=== PATIENT | female | born 1945 | race Caucasian/White ===

== ENCOUNTER 2017-04-04 10:04 | Emergency (ER) | payer MEDICARE ==
--- NOTE | 2017-04-04 10:22 | UC ---
Complaint Female HPI - HPI Summary HPI Summary: 72 y/o female presents to the urgent care c/o frequency and burning or urination with a suprapubic pressure since yesterday. Pt states it has been more than a year that she doesn't have an UTI. Pt denies back pain , fever, hematuria, N/V/D abdominal pain, chest pain, vaginal discharge. She has not taking anything to alleviate symptoms. - History Of Current Complaint Stated Complaint: UTI SYMPTOMS Time Seen by Provider: 04/04/17 10:16 Hx Obtained From: Patient ?: No - Menopausal Onset/Duration: Lasting Days - 1 day, Still Present Timing: Intermittent, Lasting Seconds Severity Initially: Mild Severity Currently: Mild Pain Intensity: 1 Pain Scale Used: 0-10 Numeric Character: Burning Aggravating Factor(s): Urination Alleviating Factor(s): Nothing Associated Signs And Symptoms: Positive: Negative. Negative: Fever, Back Pain, Vaginal Bleeding/Discharge, Vaginal Discharge - Risk Factors Ectopic Risk Factor: Negative Ovarian Torsion Risk Factor: Negative - Allergies/Home Medications Allergies/Adverse Reactions: Allergies Allergy/AdvReac Type Severity Reaction Status Date / Time Iodinated Diagnostic Agents Allergy Hives Verified 04/04/17 10:22 Morphine Allergy Hives Verified 04/04/17 10:22 Promethazine [From Phenergan] Allergy See Comment Verified 04/04/17 10:22 PMH/Surg Hx/FS Hx/Imm Hx Previously Healthy: Yes Endocrine History: Dyslipidemia Cardiovascular History: Hypertension GI/ History: Kidney Stones Other Neurological History: DDD - Surgical History Surgical History: Yes Surgery Procedure, Year, and Place: Right knee 2013. Right Ovary removed 2011. Right lithotripsy 2010. Left Breast Biopsy 2007. Bladder tuck 1998. Bilat carpal tunnel 1988, 1989. Tubal 1970 - Family History Known Family History: Positive: Hypertension - Social History Occupation: Retired Lives: With Family Alcohol Use: None Substance Use Type: None Smoking Status (MU): Never Smoked Tobacco Review of Systems Constitutional: Negative Skin: Negative Eyes: Negative ENT: Negative Respiratory: Negative Cardiovascular: Negative Gastrointestinal: Negative Genitourinary: Dysuria, Frequency, Urgency, Other - pelvic pressure Motor: Negative Neurovascular: Negative Musculoskeletal: Negative Neurological: Negative Psychological: Negative Is Patient Immunocompromised?: No All Other Systems Reviewed And Are Negative: Yes Physical Exam Triage Information Reviewed: Yes - Additional Comments VITAL SIGNS: Reviewed. GENERAL: Patient is a well developed and nourished female who is sitting comfortable in the examining table. Patient is not in any acute respiratory distress. HEAD AND FACE: No signs of trauma. No ecchymosis, hematomas or skull depressions. No sinus tenderness. EYES: PERRLA, EOMI x 2, No injected conjunctiva, clear watery eyes, no nystagmus. No photophobia. EARS: Hearing grossly intact. Ear canals and tympanic membranes are within normal limits. MOUTH: pharynx with no erythema, no exudates,no palatal petechiae. no B/L tonsillar enlargement Uvula in midline. NECK: Supple, trachea is midline, no lymphadenopathy, no JVD, no carotid bruit, no c-spine tenderness, neck with full ROM. CHEST: Symmetric, no tenderness at palpation LUNGS: Clear to auscultation bilaterally. No wheezing or crackles. CVS: Regular rate and rhythm, S1 and S2 present, no murmurs or gallops appreciated. ABDOMEN: Soft, non-tender. No signs of distention. No rebound no guarding, and no masses palpated. Bowel sounds are normal. BACK:no scoliosis or lesions, non tender to palpation, No B/L CVA tenderness EXTREMITIES: FROM in all major joints, no edema, no cyanosis or clubbing. NEURO: Alert and oriented x 3. No acute neurological deficits. Speech is normal and follows commands. SKIN: Dry and warm Complaint Female Dx - Course Course Of Treatment: 72 y/o female presents to the urgent care c/o frequency and burning or urination with a suprapubic pressure since yesterday. Pt states it has been more than a year that she doesn't have an UTI. Pt denies back pain , fever, hematuria, N/V/D abdominal pain, chest pain, vaginal discharge. She has not taking anything to alleviate symptoms. Hx obtained. PE: WNL.UA and test ordered. UA results: Blood 1+, Leukoesterase 3+. Pt Rx Macrobid 100mg PO x 5 days. Pyridium 100mg PO TID x 2 days. Advised to increase fluid intake. Urine sent for culture if any abnormality Pt will be notified for further treatment. Pt advised If symptoms do not improve to return to the urgent care or f/u with PCP. Pt understood and agreed. Left the clinic ambulating. - Differential Dx/Diagnosis Differential Diagnosis/HQI/PQRI: Cervicitis, Renal Colic, Ureteral Stone, Urinary Tract Infection Provider Diagnoses: 1- UTI. 2-Dysuria. 3- Uncontrolled HTN Discharge - Discharge Plan Condition: Stable Disposition: HOME Prescriptions: Nitrofurantoin Monohyd Macro [Macrobid] 100 mg PO BID #10 cap Phenazopyridine TAB* [Pyridium 100 mg TAB*] 100 mg PO TID #6 tab Patient Education Materials: Urinary Tract Infection in Women (ED), Low Sodium Diet (ED) Referrals: Ric Burns MD [Primary Care Provider] - 2 Days Additional Instructions: 1- Please take Macrobid 100mg PO x 5 days. Pyridium 100 mg PO TID x 2 days to alleviate urinary symptoms. Increase increase fluid intake. drink cranberry juice. 2-Urine sent for culture if any abnormality, you will be notified for further treatment. 3-If symptoms do not improve and you develop severe pain, and gross hematuria please go immediately to the ER fo further treatment. 4-Your BP is elevated today. please decrease salt in your diet, monitor BP and if it continues to be elevated please f/u with your PCP for further management
[2017-04-04 10:28] VITALS: BP 141/72
--- NOTE | 2017-04-06 07:12 | UC ---
- Progress Note Progress Note: NO CHANGE Course/Dx - Course Course Of Treatment: 72 y/o female presents to the urgent care c/o frequency and burning or urination with a suprapubic pressure since yesterday. Pt states it has been more than a year that she doesn't have an UTI. Pt denies back pain , fever, hematuria, N/V/D abdominal pain, chest pain, vaginal discharge. She has not taking anything to alleviate symptoms. Hx obtained. PE: WNL.UA and test ordered. UA results: Blood 1+, Leukoesterase 3+. Pt Rx Macrobid 100mg PO x 5 days. Pyridium 100mg PO TID x 2 days. Advised to increase fluid intake. Urine sent for culture if any abnormality Pt will be notified for further treatment. Pt advised If symptoms do not improve to return to the urgent care or f/u with PCP. Pt understood and agreed. Left the clinic ambulating.
== END 2017-04-04 11:10 | disposition home or self-care (01) ==
LOC: UCCORT 10:04
DX: N39.0 Urinary tract infection, site not specified (principal); R30.0 Dysuria; I10 Essential (primary) hypertension; Z91.041 Radiographic dye allergy status; Z88.5 Allergy status to narcotic agent; Z88.8 Allergy status to other drugs, medicaments and biological substances
CPT/HCPCS: 81003; 87077; 87086; 87186; 99212; G0463

== ENCOUNTER 2018-10-17 13:52 | Emergency (ER) | payer MEDICARE ==
[2018-10-17 15:07] VITALS: BP 125/58
--- NOTE | 2018-10-17 15:34 | UC ---
UC General HPI - HPI Summary HPI Summary: frequent urination with "discomfort" x 3 days. + urgency. denies fever, abdominal pain and flank pain. states "I'm known for these UTI'S". - History of Current Complaint Chief Complaint: UCGU Stated Complaint: URINARY Time Seen by Provider: 10/17/18 15:21 Hx Obtained From: Patient Onset/Duration: Gradual Onset Timing: Constant Pain Intensity: 0 Associated Signs & Symptoms: Negative: Abdominal Pain, Fever - Allergy/Home Medications Allergies/Adverse Reactions: Allergies Allergy/AdvReac Type Severity Reaction Status Date / Time Iodine and Iodide Containing Allergy Hives Verified 10/17/18 14:56 Produc morphine Allergy Hives Verified 10/17/18 14:56 promethazine [From Phenergan] Allergy Anxiety Verified 10/17/18 14:56 Home Medications: Home Medications Acetaminop/Codeine 30 MG TAB* [Tylenol/Codeine 30 MG TAB*] 1 - 2 tab PO Q6H PRN 10/17/18 [History Confirmed 10/17/18] Metformin HCl 1,000 mg PO BID 10/17/18 [History Confirmed 10/17/18] Sitagliptin Phosphate [Januvia] 100 mg PO DAILY 10/17/18 [History Confirmed ] PMH/Surg Hx/FS Hx/Imm Hx Endocrine History: Diabetes Cardiovascular History: Hypertension GI/ History: Gastroesophageal Reflux - Surgical History Surgical History: Yes Surgery Procedure, Year, and Place: Right knee 2013. Right Ovary removed 2011. Right lithotripsy 2010. Left Breast Biopsy 2007. Bladder tuck 1998. Bilat carpal tunnel 1988, 1989. Tubal 1970. nerve blocks for back pain - Family History Known Family History: Positive: Hypertension - Social History Alcohol Use: None Substance Use Type: None Smoking Status (MU): Never Smoked Tobacco - Immunization History Most Recent Influenza Vaccination: November 2016 Review of Systems All Other Systems Reviewed And Are Negative: Yes Constitutional: Negative: Fever, Chills Gastrointestinal: Negative: Abdominal Pain Genitourinary: Positive: Dysuria, Frequency, Urgency. Negative: Hematuria Physical Exam Triage Information Reviewed: Yes Appearance: Well-Appearing Vital Signs: Initial Vital Signs Temp 97.8 F 10/17/18 15:02 Pulse 75 10/17/18 15:02 Resp 16 10/17/18 15:02 BP 125/58 10/17/18 15:02 Pulse Ox 99 10/17/18 15:02 Vital Signs Reviewed: Yes Eyes: Positive: Conjunctiva Clear Neck: Positive: Supple Respiratory: Positive: Lungs clear Cardiovascular: Positive: RRR Abdomen Description: Positive: Nontender, No Organomegaly, Soft. Negative: CVA Tenderness (R), CVA Tenderness (L) Bowel Sounds: Positive: Present Musculoskeletal: Positive: ROM Intact Neurological: Positive: Alert Psychological: Positive: Age Appropriate Behavior Skin Exam: Normal Diagnostics - Laboratory Lab Results: U/A= PROTEIN, KETONES, BLOOD, LEUKOCYTES. CULTURE PENDING. Course/Dx - Diagnoses Provider Diagnosis: Dysuria Discharge - Sign-Out/Discharge Documenting (check all that apply): Patient Departure All imaging exams completed and their final reports reviewed: No Studies - Discharge Plan Condition: Stable Disposition: HOME Prescriptions: Cephalexin CAP* [Keflex CAP*] 500 mg PO BID 7 Days #14 cap Patient Education Materials: Urinary Tract Infection in Women (ED) Referrals: Ric Burns MD [Primary Care Provider] - 7 Days - Billing Disposition and Condition Condition: STABLE Disposition: Home
== END 2018-10-17 15:53 | disposition home or self-care (01) ==
LOC: UCCORT 13:52
DX: R30.0 Dysuria (principal); Z87.440 Personal history of urinary (tract) infections; E11.9 Type 2 diabetes mellitus without complications; Z79.84 Long term (current) use of oral hypoglycemic drugs; I10 Essential (primary) hypertension
CPT/HCPCS: 81003; 87077; 87086; 87186; 99212; G0463